=== PATIENT | male | born 1970 | race Caucasian/White ===

== ENCOUNTER 2016-05-29 12:09 | Inpatient (IN) | payer MEDICARE, MEDICAID ==
[~2016-05-29] VITALS: Ht 188 cm; Wt 183.7 kg
[~2016-05-29 12:09] MED LIST: /ACYC20CA OR; /ESCI10TA PO; /HALO5TAB OR; /QUET10TA OR; /QUET10TA PO; /QUET25TA OR; ABIL15TA OR; ABIL5TAB OR; ATEN25TA PO; ATIV0.5T OR; ATIV1TAB2 OR; BACT800T5 PO; BENZ1TA PO; BENZ1TAB OR; BENZ2TAB OR; BUSP10TA78 PO; COGE1INJ IJ; COGE1INJ OR; COGE1INJ PO; DEPA250T3 OR; DEPA500T OR; DEPAKOTE; DEPAKOTE ER PO; DOCU100C PO; FLOM5CAP PO; FLUP10TA PO; FLUP25TA PO; FLUP25VL IM; FLUP5TA PO; GEOD40CA PO; HALDOL PO; HALO10TA4 OR; HYDR25T PO; KLON0.5T PO; LEXA1TAB PO; LITH300C PO; LITH300T PO; LITH600C PO; PAXI20TA OR; QUET1TAB8 PO; QUET50TA2 PO; SERO200T PO; SERO400T PO; TRAZ100T2 PO; TRAZ50TA OR; TRIA2TA OR; WELL100T2 OR; ZYPR15TA OR; cogentin PO
[2016-05-29 12:55] LABS: MEAN CORPUSCULAR HEMOGLOBIN 29.8 pg (27.0-33.0); MEAN CORPUSCULAR HGB CONC 33.3 g/dl (32.0-36.5); MEAN CORPUSCULAR VOLUME 89.4 fl (80.0-96.0); RED CELL DISTRIBUTION WIDTH 13.5 % (11.5-14.5); WHITE BLOOD COUNT 6.1 K/mm3 (4.0-10.0)
[2016-05-29 13:06] LABS: AMPHETAMINES LEVEL URINE NEGATIVE (NEGATIVE); BENZODIAZEPINES URINE NEGATIVE (NEGATIVE); COCAINE METABOLITE URINE NEGATIVE (NEGATIVE); CONTROL LINE INT CTR LINE PRESENT; METHADONE URINE NEGATIVE (NEGATIVE); OPIATES URINE NEGATIVE (NEGATIVE); TRICYCLIC ANTIDEPRESS URINE NEGATIVE (NEGATIVE)
[2016-05-29 13:29] LABS: ALBUMIN 3.7 GM/DL (3.2-5.2); ALBUMIN/GLOBULIN RATIO 0.97 (1.00-1.93); ALKALINE PHOSPHATASE 62 U/L (45-117); ALT/SGPT 37 U/L (12-78); ANION GAP 8 MEQ/L (8-16); AST/SGOT 31 U/L (15-37); BILIRUBIN,DIRECT 0.2 MG/DL (0.0-0.2); BILIRUBIN,TOTAL 0.7 MG/DL (0.2-1.0); BLOOD UREA NITROGEN 8 MG/DL (7-18); CALCIUM LEVEL 8.8 MG/DL (8.5-10.1); CARBON DIOXIDE LEVEL 30 MEQ/L (21-32); CHLORIDE LEVEL 100 MEQ/L (98-107); CREATININE FOR GFR 1.06 MG/DL (0.70-1.30); GLOMERULAR FILTRATION RATE > 60.0 (>60); GLUCOSE, FASTING 92 MG/DL (70-105); POTASSIUM SERUM 3.6 MEQ/L (3.5-5.1); SODIUM LEVEL 138 MEQ/L (136-145); TOTAL PROTEIN 7.5 GM/DL (6.4-8.2)
[2016-05-29] MEDS ORDERED: LITH300T2 PO (14:35)
[2016-05-29] MEDS ORDERED: ATEN25TA PO (14:35)
[2016-05-29] MEDS ORDERED: INVE6TAB2 PO (14:35)
[2016-05-29] MEDS ORDERED: SERO1TAB2 PO (14:35)
[2016-05-29] MEDS ORDERED: LORazepam 1 MG TAB As Ordered ONE (14:47)
[2016-05-29 15:05] LABS: LITHIUM LEVEL 0.48 MEQ/L (0.60-1.20)
[2016-05-29] MEDS ORDERED: NICOTINE 21MG/24HR 1 EA TRANSDERMAL As Ordered ONE (15:49)
[2016-05-29 16:35] VITALS: BP 132/80
--- NOTE | 2016-05-29 16:38 | EDDOCDS ---
Nurse's Notes [facility] Name: Tristen Christian Age: 45 yrs Sex: Male : 1970 Arrival Date: 05/29/2016 Time: 12:09 Bed [facility] Private MD: Diagnosis: Major depressive disorder, single episode Presentation: 05/29 12:14 Presenting complaint: came in to [facility] [facility] with a hunting knife and ms2 threatening staff threatened to break staff's jaw----manic and sexually inappropriate--landlord states pt has been punching holes in ramirez and pt pulled sink off the wall. Mental Health Triage Level: Level 2: The patient displays active homicidal ideations. The patient was brought to the ED for evaluation because of a legal pickup order. Adult Sepsis Screening: Patient has new or worsening altered mentation (1 point). Patient's respiratory rate is less than 22. Systolic blood pressure is greater than 100. Patient has a qSOFA score of 1- Negative Sepsis Screen. Mental Health Triage Level: Level 2: The patient displays active homicidal ideations. The patient was brought to the ED for evaluation because of a legal pickup order. Suicide/Homicide risk assessment- The patient admits to and/or has been reported to be having homicidal ideations. Suicide/Homicide risk assessment- The patient reports that he/she has not been admitted to an inpatient mental health facility in the last 30 days. The patient reports that he/she does not have a recent or current history of substance abuse. The patient reports that he/she has a prior history of suicide attempt and/or organized plan. The patient reports that he/she has not experienced a significant life altering event in the last 30 days. The patient reports that he/she has adequate social support. The patient reports he/she has significant chronic medical condition(s). Status: Patient is not a agricultural service worker or dependent. Transition of care: patient was not received from another setting of care. 12:14 Acuity: RANJEET Level 3 ms2 12:14 Method Of Arrival: Police Car ms2 Triage Assessment: 12:26 General: Appears in no apparent distress. Pt Declines HIV testing. The patient is ms2 triaged at the bedside. See Assessment in Nurses Notes section of ED record. Neurological: Level of Consciousness is awake, alert, obeys commands. Respiratory: No deficits noted. Airway is patent Respiratory effort is even, unlabored, Respiratory pattern is regular, symmetrical. GI: Abdomen is obese. Derm: Skin is pink, warm & dry. Musculoskeletal: Range of motion intact in all extremities. Historical: - Allergies: states there is but not sure what-----[facility] in [place]; - Home Meds: 1. lithium carbonate 300 mg Oral cap 900 mg 2x a day (Last dose: 05/29/2016 09:00) 2. Seroquel 300 mg Oral tab nightly (Last dose: 05/28/2016 21:00) 3. Haldol 2 mg Oral tab 3 tab once daily (Last dose: 05/29/2016 09:00) 4. [facility] called in [place] ----PT HAS RECENT RX'S FOR INVEGA ER6MG DAILY [facility]. [facility]MG --ONE BID 6. LAST FILLED LITHIUM IN DECEMBER 2015 7. LAST FILLED SEROQUEL IN 2015 8. NO RECENT INFORMATION ON ANY RX FOR HALDOL - PMHx: schizoaffective d/o, bipolar type; - PSHx: unknown; - Social history: Smoking status: Chewing Tobacco No barriers to communication noted, The patient speaks fluent Georgian. - Family history: Not pertinent. - : The pt / caregiver states he / she is not on anticoagulants. Home medication list is obtained from the patient, [employer] import data. - Exposure Risk Screening:: None identified. Screenin:37 Screening information is obtained from prior medical records. Fall risk: No risks ms2 identified. Assistance ADL's: requires no assistance with activities of daily living. Abuse/DV Screen: The patient / caregiver reports he/she is: not in a situation that causes fear, pain or injury. Nutritional screening: No deficits noted. Advance Directives: Currently, there is no health care proxy. There is no active DNR order. There is no living will. There is no Power of Agency Legal Counsel. Advance directive information has not previously been placed in an [facility] medical record. Further advance directive information is declined. home support is adequate. Assessment: 12:27 General: see triage assessment. ms2 13:35 General: Appears in no apparent distress, had lunch tray and box lunch--taken well. ms2 Behavior is cooperative. Neurological: No deficits noted. Respiratory: No deficits noted. Derm: Skin is pink, warm & dry. Musculoskeletal: Range of motion intact in all extremities. 13:44 General: PFS in to see pt.. ms2 14:20 General: Appears in no apparent distress. Neurological: No deficits noted. Respiratory: ms2 Respiratory effort is even, unlabored. Derm: Skin is pink, warm & dry. 15:00 General: pt declines PO Ativan---states is not on it at home and does not want to make ms2 him too sleepy. General: dr chen aware. Neurological: Level of Consciousness is awake, alert, obeys commands. Respiratory: Respiratory effort is even, unlabored. Derm: Skin is pink, warm & dry. Musculoskeletal: No deficits noted. 15:04 Adult Sepsis Screening: The patient does not have new or worsening altered mentation. ms2 Patient's respiratory rate is less than 22. Systolic blood pressure is greater than 100. Patient has a qSOFA score of 0- Negative Sepsis Screen. General: Appears in no apparent distress, Behavior is cooperative. Neurological: Level of Consciousness is awake, alert, obeys commands. Respiratory: No deficits noted. Airway is patent Respiratory effort is even, unlabored, Respiratory pattern is regular, symmetrical. GI: Abdomen is flat, non- distended. Derm: Skin is pink, warm & dry. Musculoskeletal: Range of motion intact in all extremities. 15:54 General: Denies pt refusing nicotine patch after requesting it. Respiratory: No ms2 deficits noted. Derm: Skin is pink, warm & dry. 16:08 General: Appears in no apparent distress, on phone ---pt now wavering on going to floor ms2 ---since this time pt has been happy to be admitted and not go home and now just before having to do something -pt changing mind. Respiratory: Respiratory effort is even, unlabored, Respiratory pattern is regular, symmetrical. Derm: Skin is pink, warm & dry. Musculoskeletal: Range of motion intact in all extremities. 16:32 General: Appears in no apparent distress, Behavior is cooperative, loud voice however. ms2 Neurological: Level of Consciousness is awake, alert, obeys commands. Respiratory: Airway is patent Respiratory effort is even, unlabored, Respiratory pattern is regular, symmetrical. Derm: Skin is pink, warm & dry. Musculoskeletal: Range of motion intact in all extremities. Mental Health Eval: 15:06 Mental health consult is initiated at 14:00. 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 [facility] Behavioral Health: The patient is not an established patient of [facility] Behavioral Health. Referral Information: Evaluation referral is generated by a police agency: [employer] on issued by [facility]. The patient was referred for evaluation because Pt took knife to appt today, reportedly threatened staff. Subjective: The patients chief complaint is Pt threatened staff at [facility] today with knife, threatened to break a staff member's jaw. Pt stated he had knife because he didn't have his gun. Police called by staff. Pt making bizarre statements, says he has not eaten in 2 days because he is afraid to use the stove because the "drug dealers are coming in at night and turning on the burners." Pt is "angry at all the drug dealers.". Delusions are paranoid, persecutory, Patient's mood is anxious, elevated, irritable, Hallucinations are denied. Pt has long hx of hospitalizations, most recently at [facility] 03/19/16. Pt currently denying SI or HI, says he is "just angry with all the drug dealers." Denies he has missed any medications. Teresa reported pt has trashed his apt, torn the sink from the wall and punched holes in the wall. Mental Health history: Schizoaffective D/O. Mental Health Admissions: Most recently at [facility] 03/[address] [facility], 03/19/16 Current Outpatient Mental Health Services: Psychiatrist / Agency: Pt is seen at [facility] in [facility] . Therapist / Agency: Ruchi Martin at [facility]. Current living environment is Family / Home Support: Pt resides alone. Poor supports The patient is . Patient presents to Emergency Department with the following symptoms within the past 2 weeks: anger, delusions of persecution, Homicidal ideation toward their Threatened to kill staff with knife at [facility] today. non-compliance, poor impulse control. Substance abuse: Pt denies. Mental status exam: Patients appearance is disheveled obese, malodorous unkempt, Patient's behavior is cooperative, bizarre, Speech is pressured. Affect is labile. Mood is irritable. Hallucinations are denied. Appetite is normal. Memory is fair. Energy level is lethargic. Content of thought is Paranoid, delusional Thought process is loose. Cognitive level is oriented to person, place, time and situation Patient's insight is poor. Judgement is poor. Rapport with interviewer is guarded. Suicidal Ideation is denied. Homicidal ideation is denied. Disposition: Medically cleared for disposition by Rach Burrows MD Psychiatric Consult is performed by phone with Dr Erick Hill. [facility] Admission Criteria: The patient displays symptoms of severe psychiatric disorder resulting in disordered behavior and significant interference with his / her ability to maintain self care. Delusions. Nely. The patient requires continuous observation and/or control to protect self, others or property. The patient's care requires a multi-modal treatment plan under close supervision and coordination due to the complexity and severity of the patient's symptoms. The patient requires administration and monitoring of psychoactive medications by skilled medical providers due to the side effects of the psychoactive medications or significant dosage adjustments. Legal Status: Patient's legal status will be Emergency admission: . [place] Safe Act: [place] Safe Act is applicable to this patient. The patient poses a risk to self or other and the Nursing Property Clerk has been notified. He/She will enter the patient's data. DSM-V Differential Diagnosis: Schizoaffective Disorder (F25.0) bipolar type (F25.0). Insurance Pre-Certification: Not Required, Pt has Medicare and Medicaid. Awaiting: transfer to [facility]. Vital Signs: 12:24 BP 147 / 92; Pulse 94; Resp 20 S; Pulse Ox 93% on R/A; Height 6 ft. 2 in. (187.96 cm); ms2 Pain 0/10; 12:24 pt does not give weight ms2 ED Course: 12:10 Patient visited by Ryan Monte. mm15 12:10 Patient moved to Waiting mm15 12:12 Gustavo Moreland,DAISY is Primary Nurse. ms2 12:12 Patient moved to [facility] ms2 12:16 Rach Burrows MD is Attending Physician. sd1 12:16 Patient visited by Rach Burrows MD. sd1 12:20 Triage Initiated ms2 12:30 Pt greeted and oriented to ED. Patient advised of names of staff involved in care, pjf location of call west, wait times and NPO status. Accompanied by Law Enforcement, [facility] (9.45), Patient has correct armband on for positive identification. Placed in psych safe attire. Bed in low position. Call light in reach. Side rails up X 1. Security observing. Property removed, secured in belongings bag- Placed in locker #4. Door closed. Visitors limited. Lights dimmed. Report received from rn - psych. triage level #2, ams, cooperative \\T\\ this time. The patient / caregiver is instructed regarding the plan of care and ED course. Psych Safety Check: Location: Psych Room. 12:50 Patient visited by Bcek Crump Security Aide. pjf 13:04 Patient visited by Beck Crump Security Aide. pjf 13:17 Patient visited by Beck Crump Security Aide. pjf 13:36 The patient / caregiver is instructed regarding the plan of care and ED course. ms2 Security observing. 13:37 No IV's were initiated during this patient's visit. No procedures done that require ms2 assistance. 13:44 Patient visited by Gustavo Moreland RN. ms2 13:45 Psych Safety Check: Location: Psych Room. Visual Assessment: Cooperative. pjf 14:00 Psych Safety Check: Location: Psych Room. Visual Assessment: Cooperative. pjf 14:08 Patient visited by Beck Crump Security Aide. pjf 14:15 Psych Safety Check: Location: Psych Room. Visual Assessment: Cooperative. pjf 14:18 Erick Hill is Hospitalizing Provider. sd1 14:20 The patient / caregiver is instructed regarding the plan of care and ED course. ms2 Security observing. 14:36 Patient visited by Beck Crump Security Aide. pjf 14:38 [facility] Payment Agreement was scanned into [employer] and attached to record. jp5 15:04 Patient visited by Gustavo Moreland RN. ms2 15:05 The patient / caregiver is instructed regarding the plan of care and ED course. ms2 Security observing. 15:10 Patient visited by Gustavo Moreland RN. ms2 15:11 Patient name changed from Tristen\\S\\\\S\\Anahi\\S\\ to Tristen\\S\\ \\S\\Anahi. EDMS 15:54 Patient visited by Gustavo Moreland RN. ms2 16:08 Patient visited by Gustavo Moreland RN. ms2 16:12 Security observing. ms2 16:32 Patient visited by Gustavo Moreland RN. ms2 16:33 The patient / caregiver is instructed regarding the plan of care and ED course. ms2 Security observing. Administered Medications: 14:57 Not Given (Patient Refused): LORazepam 2 mg PO once sd1 15:54 Not Given (pt refuses once jwriter in room to givee): Nicotine Patch 21 mg/24 hr 1 ms2 applic Transdermal once Order Results: Lab Order: Acetaminophen Level; SPEC'M 05/29/16 12:09 Test: ACETAMINOPHEN LEVEL; Value: < 2.0; Range: 10.0-30.0; Abnormal: Below low normal; Units: UG/ML; Status: F Lab Order: Basic Metabolic Profile; SPEC'M 05/29/16 12:09 Test: GLUCOSE, FASTING; Value: 92; Range: 70-105; Units: MG/DL; Status: F Test: BLOOD UREA NITROGEN; Value: 8; Range: 7-18; Units: MG/DL; Status: F Test: CREATININE FOR GFR; Value: 1.06; Range: 0.70-1.30; Units: MG/DL; Status: F Test: GLOMERULAR FILTRATION RATE; Value: > 60.0; Range: >60; Status: F Test: SODIUM LEVEL; Value: 138; Range: 136-145; Units: MEQ/L; Status: F Test: POTASSIUM SERUM; Value: 3.6; Range: 3.5-5.1; Units: MEQ/L; Status: F Test: CHLORIDE LEVEL; Value: 100; Range: 98-107; Units: MEQ/L; Status: F Test: CARBON DIOXIDE LEVEL; Value: 30; Range: 21-32; Units: MEQ/L; Status: F Test: ANION GAP; Value: 8; Range: 8-16; Units: MEQ/L; Status: F Test: CALCIUM LEVEL; Value: 8.8; Range: 8.5-10.1; Units: MG/DL; Status: F Test Note: ; Units are mL/min/1.73 m2 Chronic Kidney Disease Staging per NKF: Stage I & II GFR >=60 Normal to Mildly Decreased Stage III GFR 30-59 Moderately Decreased Stage IV GFR 15-29 Severely Decreased Stage V GFR <15 Very Little GFR Left ESRD GFR <15 on [employer] Lab Order: Complete Blood Count; SPEC'M 05/29/16 12:09 Test: WHITE BLOOD COUNT; Value: 6.1; Range: 4.0-10.0; Units: K/mm3; Status: F Test: RED BLOOD COUNT; Value: 4.29; Range: 4.30-6.10; Abnormal: Below low normal; Units: M/mm3; Status: F Test: HEMOGLOBIN; Value: 12.8; Range: 14.0-18.0; Abnormal: Below low normal; Units: g/dl; Status: F Test: HEMATOCRIT; Value: 38.4; Range: 42.0-52.0; Abnormal: Below low normal; Units: %; Status: F Test: MEAN CORPUSCULAR VOLUME; Value: 89.4; Range: 80.0-96.0; Units: fl; Status: F Test: MEAN CORPUSCULAR HEMOGLOBIN; Value: 29.8; Range: 27.0-33.0; Units: pg; Status: F Test: MEAN CORPUSCULAR HGB CONC; Value: 33.3; Range: 32.0-36.5; Units: g/dl; Status: F Test: RED CELL DISTRIBUTION WIDTH; Value: 13.5; Range: 11.5-14.5; Units: %; Status: F Test: PLATELET COUNT, AUTOMATED; Value: 210; Range: 150-450; Units: k/mm3; Status: F Lab Order: Drug Eval Toxicology ED Only; SPEC'M 05/29/16 12:09 Test: AMPHETAMINES LEVEL URINE; Value: NEGATIVE; Range: NEGATIVE; Status: F Test: BARBITURATES URINE; Value: NEGATIVE; Range: NEGATIVE; Status: F Test: BENZODIAZEPINES URINE; Value: NEGATIVE; Range: NEGATIVE; Status: F Test: CANNABINOIDS URINE; Value: NEGATIVE; Range: NEGATIVE; Status: F Test: COCAINE METABOLITE URINE; Value: NEGATIVE; Range: NEGATIVE; Status: F Test: METHADONE URINE; Value: NEGATIVE; Range: NEGATIVE; Status: F Test: OPIATES URINE; Value: NEGATIVE; Range: NEGATIVE; Status: F Test: TRICYCLIC ANTIDEPRESS URINE; Value: NEGATIVE; Range: NEGATIVE; Status: F Test Note: ; ALL PRESUMPTIVE POSITIVE FINDINGS ARE UNCONFIRMED NORMAL VALUES THRESHOLD IN NG/ML AMPHETAMINES 1000 METHAMPHETAMINES 1000 BARBITURATES 300 BENZODIAZEPINES 300 CANNABINOIDS (THC) 50 COCAINE METABOLITE 300 METHADONE 300 OPIATES 300 PHENCYCLIDINE 25 TRICYCLIC ANTIDEPRESSANTS 1000 RESULTS ARE FOR MEDICAL PURPOSES ONLY. ALL URINE SPECIMENS WILL BE SAVED FOR 3 DAYS. IF CONFIRMATION OF A PRESUMPTIVE POSTIVE SCREEN RESULT IS DESIRED, CALL CHEMISTRY ([phone]) AND REQUEST URINE TO BE SENT TO REFERENCE LAB. FOR A LIST OF CLOSELY RELATED COMPOUNDS PLEASE CALL THE LAB. Lab Order: Ethyl Alcohol (ethanol); SPEC'M 05/29/16 12:09 Test: ETHYL ALCOHOL (ETHANOL); Value: < 0.003; Range: 0.000-0.010; Units: %; Status: F Lab Order: Liver Profile; SPEC'M 05/29/16 12:09 Test: AST/SGOT; Value: 31; Range: 15-37; Units: U/L; Status: F Test: ALT/SGPT; Value: 37; Range: 12-78; Units: U/L; Status: F Test: ALKALINE PHOSPHATASE; Value: 62; Range: 45-117; Units: U/L; Status: F Test: BILIRUBIN,TOTAL; Value: 0.7; Range: 0.2-1.0; Units: MG/DL; Status: F Test: BILIRUBIN,DIRECT; Value: 0.2; Range: 0.0-0.2; Units: MG/DL; Status: F Test: TOTAL PROTEIN; Value: 7.5; Range: 6.4-8.2; Units: GM/DL; Status: F Test: ALBUMIN; Value: 3.7; Range: 3.2-5.2; Units: GM/DL; Status: F Test: ALBUMIN/GLOBULIN RATIO; Value: 0.97; Range: 1.00-1.93; Abnormal: Below low normal; Status: F Lab Order: Salicylate Level; SPEC'M 05/29/16 12:09 Test: SALICYLATE LEVEL; Value: < 1.7; Range: 5.0-30.0; Abnormal: Below low normal; Units: MG/DL; Status: F Lab Order: Thyroid Stimulating Hormone; SPEC'M 05/29/16 12:09 Test: THYROID STIMULATING HORMONE; Value: 1.400; Range: 0.358-3.740; Units: uIU/ML; Status: F Lab Order: LITHIUM LEVEL; SPEC'M 05/29/16 12:09 Test: LITHIUM LEVEL; Value: 0.48; Range: 0.60-1.20; Abnormal: Below low normal; Units: MEQ/L; Status: F Outcome: 14:18 Decision to Hospitalize by Provider. sd1 16:33 Discharge Assessment: patient administered narcotics - no. The following High Risk ms2 Discharge criteria are identified: None. Admitted to Psych accompanied by tech, via wheelchair, with chart, Other 2 security accompanying pt. Condition: stable. No special radiology studies were completed. 16:37 Patient left the ED. ms2 Signatures: Dispatcher [employer] EDMS Rach Burrows MD MD sd1 Gustavo Moreland RN RN ms2 Marisabel Ferrara, PSA PSA Beck Ayala, Security Aide Ryan Gilbert mm15 Han Shukla jp5 Corrections: (The following items were deleted from the chart) 15:10 15:06 Discharge Assessment: patient administered narcotics - no ms2 ms2 15:10 15:06 The following High Risk Discharge criteria are identified: None. Admitted to ms2 Psych accompanied by tech, via wheelchair, with chart, ms2 15: 15:06 Condition: stable ms2 ms2 15:10 15:06 No special radiology studies were completed ms2 ms2 15:10 15:09 Patient left the ED. ms2 ms2 15:11 15:05 BP 133 / 71; Pulse 77bpm; Resp 20bpm; Spontaneous; Pulse Ox 98% RA; Temp 96.4F ms2 Oral; Pain 0/10; ms2 15:27 15:06 Subjective: The patients chief complaint is Pt threatened MH staff at [facility] today with knife, threatened to break a staff member's jaw. Pt stated he had knife because he didn't have his gun. Police called by staff. Pt making bizarre statements, says he has not eaten in 2 days because he is afraid to use the stove because the "drug dealers are coming in at night and turning on the burners." Pt is "angry at all the drug dealers.". Delusions are paranoid, persecutory, Patient's mood is anxious, elevated, irritable, Hallucinations are denied. Pt has long hx of hospitalizations, most recently at [facility] 03/19/16. Pt currently denying SI or HI, says he is "just angry with all the drug dealers." Denies he has missed any medications ca MTDD
--- NOTE | 2016-05-29 16:38 | EDDOCDS ---
Physician Documentation [facility] Name: Tristen Christian Age: 45 yrs Sex: Male : 1970 Arrival Date: 05/29/2016 Time: 12:09 Bed [facility] Private MD: Disposition: 05/29/16 14:18 Hospitalization ordered by Erick Hill for Inpatient Admission. Preliminary diagnosis is Major depressive disorder, single episode. - Bed requested for Admit. - Status is Inpatient Admission. ms2 - Condition is Stable. - Problem is an ongoing problem. - Symptoms are unchanged. Historical: - Allergies: states there is but not sure what-----[facility] in [place]; - Home Meds: 1. lithium carbonate 300 mg Oral cap 900 mg 2x a day (Last dose: 05/29/2016 09:00) 2. Seroquel 300 mg Oral tab nightly (Last dose: 05/28/2016 21:00) 3. Haldol 2 mg Oral tab 3 tab once daily (Last dose: 05/29/2016 09:00) [facility]. [facility] [place] ----PT HAS RECENT RX'S FOR INVEGA ER6MG DAILY 5. PER [facility] ---ATENOLOL 25MG --ONE BID 6. LAST FILLED LITHIUM IN DECEMBER 2015 7. LAST FILLED SEROQUEL IN 2015 8. NO RECENT INFORMATION ON ANY RX FOR HALDOL - PMHx: schizoaffective d/o, bipolar type; - PSHx: unknown; - Social history: Smoking status: Chewing Tobacco No barriers to communication noted, The patient speaks fluent Persian. - Family history: Not pertinent. - : The pt / caregiver states he / she is not on anticoagulants. Home medication list is obtained from the patient, [employer] import data. - Exposure Risk Screening:: None identified. Vital Signs: 05/29 12:24 BP 147 / 92; Pulse 94; Resp 20 S; Pulse Ox 93% on R/A; Height 6 ft. 2 in. (187.96 cm); ms2 Pain 0/10; 12:24 pt does not give weight ms2 MDM: 12:14 REGULAR DIET PLASTIC ANDERSON+DIET ordered. EDMS 12:17 Consult PFS/PSA/Script Reader ordered. sd1 12:17 Consult PFS/PSA/Script Reader: Patient's case requires discussion with on-call sd1 Psychiatrist ordered. 12:17 PSA/PFS to call Nursing Retort Engineer, to [place] if patient sd1 involuntarily admitted or transferred for SI or HI ordered. 12:17 Confirm accurate psychiatric medication list and times of last dosage ordered. sd1 12:17 Detain Pt Until Medically/PFS Cleared ordered. sd1 12:18 Acetaminophen Level Ordered. EDMS 12:18 Basic Metabolic Profile Ordered. EDMS 12:18 Complete Blood Count Ordered. EDMS 12:18 Drug Eval Toxicology ED Only Ordered. EDMS 12:18 Ethyl Alcohol (ethanol) Ordered. EDMS 12:18 Liver Profile Ordered. EDMS 12:18 Salicylate Level Ordered. EDMS 12:18 Thyroid Stimulating Hormone Ordered. EDMS 13:52 Consult PFS/PSA/Script Reader complete. ca 13:52 Acetaminophen Level Reviewed. sd1 13:52 Complete Blood Count Reviewed. sd1 13:52 Liver Profile Reviewed. sd1 13:52 Salicylate Level Reviewed. sd1 13:52 Basic Metabolic Profile Reviewed. sd1 13:52 Drug Eval Toxicology ED Only Reviewed. sd1 13:52 Ethyl Alcohol (ethanol) Reviewed. sd1 13:52 Thyroid Stimulating Hormone Reviewed. sd1 13:52 Consult PFS/PSA/Script Reader: Patient's case requires discussion with on-call ca Psychiatrist complete. 14:11 LORazepam 2 mg PO once ordered. sd1 14:14 PSA/PFS to call Nursing Retort Engineer, to [place] if patient ca involuntarily admitted or transferred for SI or HI complete. 14:38 [facility] Payment Agreement was scanned into [employer] and attached to record. jp5 14:38 Financial registration complete. jp5 14:41 LITHIUM LEVEL Ordered. EDMS 15:02 Admit to [facility]: ordered. EDMS 15:15 REGULAR DIET ordered. EDMS 15:35 Nicotine Patch 21 mg/24 hr 1 applic Transdermal once ordered. sd1 Administered Medications: 14:57 Not Given (Patient Refused): LORazepam 2 mg PO once sd1 15:54 Not Given (pt refuses once jwriter in room to givee): Nicotine Patch 21 mg/24 hr 1 ms2 applic Transdermal once Signatures: Dispatcher [employer] EDMS Rach Burrows MD MD sd1 Gustavo Moreland RN RN ms2 Marisabel Ferrara, PSA PSA Han Alcaraz jp5 The chart was reviewed and I authenticate all verbal orders and agree with the evaluation and treatment provided.Corrections: (The following items were deleted from the chart) 14:41 14:35 LITHIUM LEVEL+LAB ordered. EDMS EDMS Attachments: 14:38 [facility] Payment Agreement jp5 MTDD
[2016-05-29] MEDS ORDERED: MOM 30ML SUSPENSION UDC PO PRN (19:15)
[2016-05-29] MEDS ORDERED: ACETAMINOPHEN TAB 650MG DOSE (2X325MG) PO PRN (19:15)
[2016-05-29] MEDS ORDERED: traZODone 50 MG TAB PO PRN (19:15)
[2016-05-29] MEDS ORDERED: OLANZapine ORAL DISINTEGRATING TAB 5MG PO PRN (19:15)
[2016-05-29] MEDS ORDERED: MAALOX 30 ML SUSP *UDC PO PRN (19:15)
[2016-05-29] MEDS: QUEtiapine FUMARATE 50 MG TAB PO SCH (20:55)
[2016-05-29] MEDS: NICOTINE 21MG/24HR 1 EA TRANSDERMAL TD SCH (20:56)
[2016-05-29] MEDS: LITHIUM CARBONATE 300 MG CAP PO SCH (20:56)
[2016-05-29] MEDS ORDERED: PALIPERIDONE 3 MG ER TAB (INVEGA) PO ONE (21:00)
[2016-05-30 06:35] VITALS: BP 149/81
[2016-05-30] MEDS: NICOTINE 21MG/24HR 1 EA TRANSDERMAL TD SCH (08:18)
[2016-05-30] MEDS: ATENOLOL 25 MG TAB PO SCH (08:18)
[2016-05-30] MEDS: LITHIUM CARBONATE 300 MG CAP PO SCH ×2 (08:18→20:30)
[2016-05-30] MEDS ORDERED: PALIPERIDONE 3 MG ER TAB (INVEGA) PO ONE (09:00)
--- NOTE | 2016-05-30 11:58 | HPEPDOC ---
Medical History and Physical Date of Admission May 29, 2016 at 16:35 History and Physical PCP: Dr Mojica ATTENDING: Dr. Gwyn Valencia HPI: 45yoF admitted to [facility] for Schizoaffective Disorder, being medically examined today. No acute medical complaints today. Denies any fevers, chills, weakness, fatigue, WELLER, CP, SOB, cough, palpitations, abdominal pain, N/V/D or changes in bowel or bladder habits. PMHx: Hypertension BPH Bipolar disorder Schizoaffective disorder Depression History of bladder tumor status post resection 04/02- Dr Goyal History of substance use PSHX: Bladder tumor resection SOCHX: Resides in: [facility] Marital Status: Kids: None Employment: Unemployed Tobacco use: One can of chewing tobacco per day ETOH: One to 2 times per month up to 6 drinks Illicit Drugs: History of marijuana use, none recently IV Drug Use: Denies Tattoos done unprofessionally: Denies FAMHX: Mother: Alive, well Father: , 68 [place] Siblings: Alive, well Unexpected deaths due to medical reasons: None. ROS: As noted in HPI, otherwise 11pt ROS of systems reviewed and unremarkable PE: GEN: 45yoM, appears stated age. Well-nourished, well developed. No acute distress. Alert and oriented x 3. Pleasant, interactive. HEENT: Normocephalic, atraumatic. Pupils are equal, round, and reactive to light. Extraocular movements are intact. No nystagmus appreciated. Sclera are nonicteric. Conjunctiva without injection. Nose midline. Nasal turbinates without bogginess. EACs both patent BL. TMs both visualized and salazar with good cone of light, no bulging or erythema. No facial asymmetry. Moist mucous membranes. Dentition fair. Pharynx pink and moist, no cobblestoning. Neck supple , trachea midline. No lymphadenopathy or thyromegaly appreciated. CHEST: Regular rate and rhythm, +S1, +S2 LUNGS: Clear to auscultation bilaterally. No wheezes, rales, or rhonchi. Breathing appears symmetric and easy. Patient is speaking in full sentences. No accessory muscle use. ABD: Round, soft, non-tender, non-distended. +Bowel sounds throughout. No rebound or guarding. No costovertebral angle tenderness. EXT: Pulses 2+ bilaterally dorsalis pedis and radial. No lower extremity edema appreciated. SKIN: [place], dry, warm. Capillary refill <2sec. No rashes. NEURO: Alert and oriented x 3. Cranial nerves III-XII are intact. No focal deficits appreciated. EKG: Pending. A&P: 45yoF admitted to [facility] for Schizoaffective Disorder 1. Psych. Plan per Psychiatry. Obtain baseline EKG to assure the safety of psychiatric medications as they can prolong the QT interval. 2. Nicotine dependence. Patch available. 3. HTN. Continue Atenolol 25 mg daily and monitor BP. Pt had apparently not been taking Atenolol prior to admission. 4. Follow up with PCP on discharge. Dr Mojica. 5. Obesity. BMI is noted to be 50.4. Complicates care. 6. Staff member present throughout exam, Frank bar. Vital Signs Vital Signs Label Value Date Time Patient Temperature 98.6 degrees F 05/30/16 0635 Temperature Source Tympanic 05/30/16 0635 Pulse 80 05/30/16 0635 Respiratory Rate 20 bpm 05/30/16 0635 Blood Pressure Assessment 149/81 (103) 05/30/16 0635 Laboratory Data Labs 24H Laboratory Tests 2 05/29/16 12:09: Acetaminophen Level < 2.0L, Aspartate Amino Transf (AST/SGOT) 31, Alanine Aminotransferase (ALT/SGPT) 37, Alkaline Phosphatase 62, Total Bilirubin 0.7, Direct Bilirubin 0.2, Albumin 3.7, Albumin/Globulin Ratio 0.97L, Anion Gap 8, Calcium Level 8.8, Ethyl Alcohol Level < 0.003, Glomerular Filtration Rate > 60.0, [place] Level 0.48L, Salicylates Level < 1.7L, Thyroid Stimulating Hormone (TSH) 1.400, Total Protein 7.5, Urine Amphetamine Level NEGATIVE, Urine Benzodiazepines Screen NEGATIVE, Urine Cannabinoids NEGATIVE, Urine Cocaine Metabolite NEGATIVE, Urine Opiates Screen NEGATIVE, Urine Barbiturates, Qualitative NEGATIVE, Urine Methadone Screen NEGATIVE, Urine Tricyclic Antidepressants NEGATIVE CBC/BMP Laboratory Tests 05/29/16 12:09 Red Blood Count 4.29 L, Mean Corpuscular Volume 89.4, Mean Corpuscular Hemoglobin 29.8, Mean Corpuscular Hemoglobin Concent 33.3, Red Cell Distribution Width 13.5 Home Medications Scheduled Atenolol (Atenolol) 25 Mg Tab 25 MG PO BID [place] Carbonate ([place] Carbonate) 300 Mg Tab 900 MG PO BID Paliperidone (Invega) 6 Mg Tab 6 MG PO DAILY Quetiapine Fumarate (Seroquel) 300 Mg Tab 300 MG PO QHS Allergies Coded Allergies: Bupropion (Verified Adverse Reaction, Intermediate, SEIZURES, 03/31/14) Deidra Myers May 30, 2016 11:58
--- NOTE | 2016-05-30 17:33 | ECGEPIP ---
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
[2016-05-30 18:00] VITALS: BP 118/60
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
[2016-05-30] MEDS: QUEtiapine FUMARATE 50 MG TAB PO SCH (22:36)
[2016-05-31 06:08] VITALS: BP 114/61
[2016-05-31] MEDS: LITHIUM CARBONATE 300 MG CAP PO SCH ×2 (09:04→21:06)
[2016-05-31] MEDS: ATENOLOL 25 MG TAB PO SCH (09:05)
[2016-05-31] MEDS: PALIPERIDONE 6 MG ER TAB (INVEGA) PO SCH (09:05)
[2016-05-31] MEDS: NICOTINE 21MG/24HR 1 EA TRANSDERMAL TD SCH (09:05)
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
--- NOTE | 2016-05-31 17:38 | EDDOCDS ---
Physician Documentation [facility] Name: Tristen Christian Age: 45 yrs Sex: Male : 1970 Arrival Date: 05/29/2016 Time: 12:09 Bed [facility] Private MD: Disposition: 05/29/16 14:18 Hospitalization ordered by Erick Hill for Inpatient Admission. Preliminary diagnosis is Major depressive disorder, single episode. - Bed requested for Admit. - Status is Inpatient Admission. ms2 - Condition is Stable. - Problem is an ongoing problem. - Symptoms are unchanged. Historical: - Allergies: states there is but not sure what-----[facility] in [place]; - Home Meds: 1. lithium carbonate 300 mg Oral cap 900 mg 2x a day (Last dose: 05/29/2016 09:00) 2. Seroquel 300 mg Oral tab nightly (Last dose: 05/28/2016 21:00) 3. Haldol 2 mg Oral tab 3 tab once daily (Last dose: 05/29/2016 09:00) [facility]. [facility] [place] ----PT HAS RECENT RX'S FOR INVEGA ER6MG DAILY 5. PER [facility] ---ATENOLOL 25MG --ONE BID 6. LAST FILLED LITHIUM IN DECEMBER 2015 7. LAST FILLED SEROQUEL IN 2015 8. NO RECENT INFORMATION ON ANY RX FOR HALDOL - PMHx: schizoaffective d/o, bipolar type; - PSHx: unknown; - Social history: Smoking status: Chewing Tobacco No barriers to communication noted, The patient speaks fluent Georgian. - Family history: Not pertinent. - : The pt / caregiver states he / she is not on anticoagulants. Home medication list is obtained from the patient, [employer] import data. - Exposure Risk Screening:: None identified. Vital Signs: 05/29 12:24 BP 147 / 92; Pulse 94; Resp 20 S; Pulse Ox 93% on R/A; Height 6 ft. 2 in. (187.96 cm); ms2 Pain 0/10; 12:24 pt does not give weight ms2 MDM: 12:14 REGULAR DIET PLASTIC ANDERSON+DIET ordered. EDMS 12:17 Consult PFS/PSA/Brazing Machine Setter ordered. sd1 12:17 Consult PFS/PSA/Brazing Machine Setter: Patient's case requires discussion with on-call sd1 Psychiatrist ordered. 12:17 PSA/PFS to call Nursing Machine Shop Inspector, to enter [place] data [place] if patient sd1 involuntarily admitted or transferred for SI or HI ordered. 12:17 Confirm accurate psychiatric medication list and times of last dosage ordered. sd1 12:17 Detain Pt Until Medically/PFS Cleared ordered. sd1 12:18 Acetaminophen Level Ordered. EDMS 12:18 Basic Metabolic Profile Ordered. EDMS 12:18 Complete Blood Count Ordered. EDMS 12:18 Drug Eval Toxicology ED Only Ordered. EDMS 12:18 Ethyl Alcohol (ethanol) Ordered. EDMS 12:18 Liver Profile Ordered. EDMS 12:18 Salicylate Level Ordered. EDMS 12:18 Thyroid Stimulating Hormone Ordered. EDMS 13:52 Consult PFS/PSA/Brazing Machine Setter complete. ca 13:52 Acetaminophen Level Reviewed. sd1 13:52 Complete Blood Count Reviewed. sd1 13:52 Liver Profile Reviewed. sd1 13:52 Salicylate Level Reviewed. sd1 13:52 Basic Metabolic Profile Reviewed. sd1 13:52 Drug Eval Toxicology ED Only Reviewed. sd1 13:52 Ethyl Alcohol (ethanol) Reviewed. sd1 13:52 Thyroid Stimulating Hormone Reviewed. sd1 13:52 Consult PFS/PSA/Brazing Machine Setter: Patient's case requires discussion with on-call ca Psychiatrist complete. 14:11 LORazepam 2 mg PO once ordered. sd1 14:14 PSA/PFS to call Nursing Machine Shop Inspector, to enter [place] if patient ca involuntarily admitted or transferred for SI or HI complete. 14:38 [facility] Payment Agreement was scanned into [email or web address] and attached to record. jp5 14:38 Financial registration complete. jp5 14:41 LITHIUM LEVEL Ordered. EDMS 15:02 Admit to [facility]: ordered. EDMS 15:15 REGULAR DIET ordered. EDMS 15:35 Nicotine Patch 21 mg/24 hr 1 applic Transdermal once ordered. sd1 05/30 11:56 T-Sheet-- Draft Copy was scanned into [email or web address] and attached to record. gb Administered Medications: 05/29 14:57 Not Given (Patient Refused): LORazepam 2 mg PO once sd1 15:54 Not Given (pt refuses once jwriter in room to givee): Nicotine Patch 21 mg/24 hr 1 ms2 applic Transdermal once Signatures: Dispatcher [employer] EDMS Rach Burrows MD MD sd1 Gustavo Moreland,DAISY RN ms2 Marisabel Ferrara, PSA PSA ca [place], Reg Reg Han Espinosa jp5 The chart was reviewed and I authenticate all verbal orders and agree with the evaluation and treatment provided.Corrections: (The following items were deleted from the chart) 14:41 14:35 LITHIUM LEVEL+LAB ordered. EDMS EDMS Attachments: 14:38 [facility] Payment Agreement jp5 05/30 11:56 T-Sheet-- Draft Copy gb Chart Complete MTDD
--- NOTE | 2016-05-31 17:38 | EDDOCDS ---
Nurse's Notes [facility] Name: Tristen Christian Age: 45 yrs Sex: Male : 1970 Arrival Date: 05/29/2016 Time: 12:09 Bed [facility] Private MD: Diagnosis: Major depressive disorder, single episode Presentation: 05/29 12:14 Presenting complaint: [facility] with a hunting knife and ms2 threatening staff threatened to break staff's jaw----manic and sexually inappropriate--landlord states pt has been punching holes in ramirez and pt pulled sink off the wall. Mental Health Triage Level: Level 2: The patient displays active homicidal ideations. The patient was brought to the ED for evaluation because of a legal pickup order. Adult Sepsis Screening: Patient has new or worsening altered mentation (1 point). Patient's respiratory rate is less than 22. Systolic blood pressure is greater than 100. Patient has a qSOFA score of 1- Negative Sepsis Screen. Mental Health Triage Level: Level 2: The patient displays active homicidal ideations. The patient was brought to the ED for evaluation because of a legal pickup order. Suicide/Homicide risk assessment- The patient admits to and/or has been reported to be having homicidal ideations. Suicide/Homicide risk assessment- The patient reports that he/she has not been admitted to an inpatient mental health facility in the last 30 days. The patient reports that he/she does not have a recent or current history of substance abuse. The patient reports that he/she has a prior history of suicide attempt and/or organized plan. The patient reports that he/she has not experienced a significant life altering event in the last 30 days. The patient reports that he/she has adequate social support. The patient reports he/she has significant chronic medical condition(s). Status: Patient is not a family services manager or dependent. Transition of care: patient was not received from another setting of care. 12:14 Acuity: RANJEET Level 3 ms2 12:14 Method Of Arrival: Police Car ms2 Triage Assessment: 12:26 General: Appears in no apparent distress. Pt Declines HIV testing. The patient is ms2 triaged at the bedside. See Assessment in Nurses Notes section of ED record. Neurological: Level of Consciousness is awake, alert, obeys commands. Respiratory: No deficits noted. Airway is patent Respiratory effort is even, unlabored, Respiratory pattern is regular, symmetrical. GI: Abdomen is obese. Derm: Skin is pink, warm & dry. Musculoskeletal: Range of motion intact in all extremities. Historical: - Allergies: states there is but not sure what-----[facility] in [place]; - Home Meds: 1. lithium carbonate 300 mg Oral cap 900 mg 2x a day (Last dose: 05/29/2016 09:00) 2. Seroquel 300 mg Oral tab nightly (Last dose: 05/28/2016 21:00) 3. Haldol 2 mg Oral tab 3 tab once daily (Last dose: 05/29/2016 09:00) 4. [facility] [place] ----PT HAS RECENT RX'S FOR INVEGA ER6MG DAILY 5. [facility]AT[facility] 25MG --ONE BID 6. LAST FILLED LITHIUM IN DECEMBER 2015 7. LAST FILLED SEROQUEL IN 2015 8. NO RECENT INFORMATION ON ANY RX FOR HALDOL - PMHx: schizoaffective d/o, bipolar type; - PSHx: unknown; - Social history: Smoking status: Chewing Tobacco No barriers to communication noted, The patient speaks fluent Irish. - Family history: Not pertinent. - : The pt / caregiver states he / she is not on anticoagulants. Home medication list is obtained from the patient, [email or web address] import data. - Exposure Risk Screening:: None identified. Screenin:37 Screening information is obtained from prior medical records. Fall risk: No risks ms2 identified. Assistance ADL's: requires no assistance with activities of daily living. Abuse/DV Screen: The patient / caregiver reports he/she is: not in a situation that causes fear, pain or injury. Nutritional screening: No deficits noted. Advance Directives: Currently, there is no health care proxy. There is no active DNR order. There is no living will. There is no Power of Robot Programmer. Advance directive information has not previously been placed in an [facility] medical record. Further advance directive information is declined. home support is adequate. Assessment: 12:27 General: see triage assessment. ms2 13:35 General: Appears in no apparent distress, had lunch tray and box lunch--taken well. ms2 Behavior is cooperative. Neurological: No deficits noted. Respiratory: No deficits noted. Derm: Skin is pink, warm & dry. Musculoskeletal: Range of motion intact in all extremities. 13:44 General: PFS in to see pt.. ms2 14:20 General: Appears in no apparent distress. Neurological: No deficits noted. Respiratory: ms2 Respiratory effort is even, unlabored. Derm: Skin is pink, warm & dry. 15:00 General: pt declines PO Ativan---states is not on it at home and does not want to make ms2 him too sleepy. General: dr chen aware. Neurological: Level of Consciousness is awake, alert, obeys commands. Respiratory: Respiratory effort is even, unlabored. Derm: Skin is pink, warm & dry. Musculoskeletal: No deficits noted. 15:04 Adult Sepsis Screening: The patient does not have new or worsening altered mentation. ms2 Patient's respiratory rate is less than 22. Systolic blood pressure is greater than 100. Patient has a qSOFA score of 0- Negative Sepsis Screen. General: Appears in no apparent distress, Behavior is cooperative. Neurological: Level of Consciousness is awake, alert, obeys commands. Respiratory: No deficits noted. Airway is patent Respiratory effort is even, unlabored, Respiratory pattern is regular, symmetrical. GI: Abdomen is flat, non- distended. Derm: Skin is pink, warm & dry. Musculoskeletal: Range of motion intact in all extremities. 15:54 General: Denies pt refusing nicotine patch after requesting it. Respiratory: No ms2 deficits noted. Derm: Skin is pink, warm & dry. 16:08 General: Appears in no apparent distress, on phone ---pt now wavering on going to floor ms2 ---since this time pt has been happy to be admitted and not go home and now just before having to do something -pt changing mind. Respiratory: Respiratory effort is even, unlabored, Respiratory pattern is regular, symmetrical. Derm: Skin is pink, warm & dry. Musculoskeletal: Range of motion intact in all extremities. 16:32 General: Appears in no apparent distress, Behavior is cooperative, loud voice however. ms2 Neurological: Level of Consciousness is awake, alert, obeys commands. Respiratory: Airway is patent Respiratory effort is even, unlabored, Respiratory pattern is regular, symmetrical. Derm: Skin is pink, warm & dry. Musculoskeletal: Range of motion intact in all extremities. Mental Health Eval: 15:06 Mental health consult is initiated at 14:00. Status: The patient is not a ca family services manager or dependent. [facility] Behavioral Health: The patient is not an established patient of [facility] Behavioral Health. Referral Information: Evaluation referral is generated by a police agency: [employer] on issued by [facility]. The patient was referred for evaluation because Pt took knife to appt today, reportedly threatened staff. Subjective: The patients chief complaint is Pt threatened staff at [facility] today with knife, threatened to break a staff member's jaw. Pt stated he had knife because he didn't have his gun. Police called by staff. Pt making bizarre statements, says he has not eaten in 2 days because he is afraid to use the stove because the "drug dealers are coming in at night and turning on the burners." Pt is "angry at all the drug dealers.". Delusions are paranoid, persecutory, Patient's mood is anxious, elevated, irritable, Hallucinations are denied. Pt has long hx of hospitalizations, most recently at [facility] 03/19/16. Pt currently denying SI or HI, says he is "just angry with all the drug dealers." Denies he has missed any medications. Teresa reported pt has trashed his apt, torn the sink from the wall and punched holes in the wall. Mental Health history: Schizoaffective D/O. Mental Health Admissions: Most recently at [facility] 03/[address] [facility], 03/19/16 Current Outpatient Mental Health Services: Psychiatrist / Agency: Pt is seen at [facility] in [facility] . Therapist / Agency: Ruchi Martin at [facility]. Current living environment is Family / Home Support: Pt resides alone. Poor supports The patient is . Patient presents to Emergency Department with the following symptoms within the past 2 weeks: anger, delusions of persecution, Homicidal ideation toward their Threatened to kill staff with knife at [facility] today. non-compliance, poor impulse control. Substance abuse: Pt denies. Mental status exam: Patients appearance is disheveled obese, malodorous unkempt, Patient's behavior is cooperative, bizarre, Speech is pressured. Affect is labile. Mood is irritable. Hallucinations are denied. Appetite is normal. Memory is fair. Energy level is lethargic. Content of thought is Paranoid, delusional Thought process is loose. Cognitive level is oriented to person, place, time and situation Patient's insight is poor. Judgement is poor. Rapport with interviewer is guarded. Suicidal Ideation is denied. Homicidal ideation is denied. Disposition: Medically cleared for disposition by Rach Burrows MD Psychiatric Consult is performed by phone with Dr Erick Hill. [facility] Admission Criteria: The patient displays symptoms of severe psychiatric disorder resulting in disordered behavior and significant interference with his / her ability to maintain self care. Delusions. Nely. The patient requires continuous observation and/or control to protect self, others or property. The patient's care requires a multi-modal treatment plan under close supervision and coordination due to the complexity and severity of the patient's symptoms. The patient requires administration and monitoring of psychoactive medications by skilled medical providers due to the side effects of the psychoactive medications or significant dosage adjustments. Legal Status: Patient's legal status will be Emergency admission: . [place] Safe [place]: [place] Safe Act is applicable to this patient. The patient poses a risk to self or other and the Nursing Keypunch Operator has been notified. He/She will enter the patient's data. DSM-V Differential Diagnosis: Schizoaffective Disorder (F25.0) bipolar type (F25.0). Insurance Pre-Certification: Not Required, Pt has Medicare and Medicaid. Awaiting: transfer to [facility]. Vital Signs: 12:24 BP 147 / 92; Pulse 94; Resp 20 S; Pulse Ox 93% on R/A; Height 6 ft. 2 in. (187.96 cm); ms2 Pain 0/10; 12:24 pt does not give weight ms2 ED Course: 12:10 Patient visited by Ryan Monte. mm15 12:10 Patient moved to Waiting mm15 12:12 Gustavo Moreland,DAISY is Primary Nurse. ms2 12:12 Patient moved to [facility] ms2 12:16 Rach Burrows MD is Attending Physician. sd1 12:16 Patient visited by Rach Burrows MD. sd1 12:20 Triage Initiated ms2 12:30 Pt greeted and oriented to ED. Patient advised of names of staff involved in care, pjf location of call west, wait times and NPO status. Accompanied by Law Enforcement, [facility] (9.45), Patient has correct armband on for positive identification. Placed in psych safe attire. Bed in low position. Call light in reach. Side rails up X 1. Security observing. Property removed, secured in belongings bag- Placed in locker #4. Door closed. Visitors limited. Lights dimmed. Report received from rn - psych. triage level #2, ams, cooperative \\T\\ this time. The patient / caregiver is instructed regarding the plan of care and ED course. Psych Safety Check: Location: Psych Room. 12:50 Patient visited by Beck Crump Security Aide. pjf 13:04 Patient visited by Beck Crump Security Aide. pjf 13:17 Patient visited by Beck Crump Security Aide. pjf 13:36 The patient / caregiver is instructed regarding the plan of care and ED course. ms2 Security observing. 13:37 No IV's were initiated during this patient's visit. No procedures done that require ms2 assistance. 13:44 Patient visited by Gustavo Moreland RN. ms2 13:45 Psych Safety Check: Location: Psych Room. Visual Assessment: Cooperative. pjf 14:00 Psych Safety Check: Location: Psych Room. Visual Assessment: Cooperative. pjf 14:08 Patient visited by Beck Crump Security Aide. pjf 14:15 Psych Safety Check: Location: Psych Room. Visual Assessment: Cooperative. pjf 14:18 Erick Hill is Hospitalizing Provider. sd1 14:20 The patient / caregiver is instructed regarding the plan of care and ED course. ms2 Security observing. 14:36 Patient visited by Beck Crump Security Aide. pjf 14:38 [facility] Payment Agreement was scanned into [employer] and attached to record. jp5 15:04 Patient visited by Gustavo Moreland RN. ms2 15:05 The patient / caregiver is instructed regarding the plan of care and ED course. ms2 Security observing. 15:10 Patient visited by Gustavo Moreland RN. ms2 15:11 Patient name changed from Tristen\\S\\\\S\\Anahi\\S\\ to Tristen\\S\\ \\S\\Anahi. EDMS 15:54 Patient visited by Gustavo Moreland RN. ms2 16:08 Patient visited by Gustavo Moreland RN. ms2 16:12 Security observing. ms2 16:32 Patient visited by Gustavo Moreland RN. ms2 16:33 The patient / caregiver is instructed regarding the plan of care and ED course. ms2 Security observing. 05/30 11:56 T-Sheet-- Draft Copy was scanned into [employer] and attached to record. gb Administered Medications: 05/29 14:57 Not Given (Patient Refused): LORazepam 2 mg PO once sd1 15:54 Not Given (pt refuses once jwriter in room to givee): Nicotine Patch 21 mg/24 hr 1 ms2 applic Transdermal once Order Results: Lab Order: Acetaminophen Level; SPEC'M 05/29/16 12:09 Test: ACETAMINOPHEN LEVEL; Value: < 2.0; Range: 10.0-30.0; Abnormal: Below low normal; Units: UG/ML; Status: F Lab Order: Basic Metabolic Profile; SPEC'M 05/29/16 12:09 Test: GLUCOSE, FASTING; Value: 92; Range: 70-105; Units: MG/DL; Status: F Test: BLOOD UREA NITROGEN; Value: 8; Range: 7-18; Units: MG/DL; Status: F Test: CREATININE FOR GFR; Value: 1.06; Range: 0.70-1.30; Units: MG/DL; Status: F Test: GLOMERULAR FILTRATION RATE; Value: > 60.0; Range: >60; Status: F Test: SODIUM LEVEL; Value: 138; Range: 136-145; Units: MEQ/L; Status: F Test: POTASSIUM SERUM; Value: 3.6; Range: 3.5-5.1; Units: MEQ/L; Status: F Test: CHLORIDE LEVEL; Value: 100; Range: 98-107; Units: MEQ/L; Status: F Test: CARBON DIOXIDE LEVEL; Value: 30; Range: 21-32; Units: MEQ/L; Status: F Test: ANION GAP; Value: 8; Range: 8-16; Units: MEQ/L; Status: F Test: CALCIUM LEVEL; Value: 8.8; Range: 8.5-10.1; Units: MG/DL; Status: F Test Note: ; Units are mL/min/1.73 m2 Chronic Kidney Disease Staging per NKF: Stage I & II GFR >=60 Normal to Mildly Decreased Stage III GFR 30-59 Moderately Decreased Stage IV GFR 15-29 Severely Decreased Stage V GFR <15 Very Little GFR Left ESRD GFR <15 on RISK DEVELOPER Lab Order: Complete Blood Count; SPEC'M 05/29/16 12:09 Test: WHITE BLOOD COUNT; Value: 6.1; Range: 4.0-10.0; Units: K/mm3; Status: F Test: RED BLOOD COUNT; Value: 4.29; Range: 4.30-6.10; Abnormal: Below low normal; Units: M/mm3; Status: F Test: HEMOGLOBIN; Value: 12.8; Range: 14.0-18.0; Abnormal: Below low normal; Units: g/dl; Status: F Test: HEMATOCRIT; Value: 38.4; Range: 42.0-52.0; Abnormal: Below low normal; Units: %; Status: F Test: MEAN CORPUSCULAR VOLUME; Value: 89.4; Range: 80.0-96.0; Units: fl; Status: F Test: MEAN CORPUSCULAR HEMOGLOBIN; Value: 29.8; Range: 27.0-33.0; Units: pg; Status: F Test: MEAN CORPUSCULAR HGB CONC; Value: 33.3; Range: 32.0-36.5; Units: g/dl; Status: F Test: RED CELL DISTRIBUTION WIDTH; Value: 13.5; Range: 11.5-14.5; Units: %; Status: F Test: PLATELET COUNT, AUTOMATED; Value: 210; Range: 150-450; Units: k/mm3; Status: F Lab Order: Drug Eval Toxicology ED Only; SPEC'M 05/29/16 12:09 Test: AMPHETAMINES LEVEL URINE; Value: NEGATIVE; Range: NEGATIVE; Status: F Test: BARBITURATES URINE; Value: NEGATIVE; Range: NEGATIVE; Status: F Test: BENZODIAZEPINES URINE; Value: NEGATIVE; Range: NEGATIVE; Status: F Test: CANNABINOIDS URINE; Value: NEGATIVE; Range: NEGATIVE; Status: F Test: COCAINE METABOLITE URINE; Value: NEGATIVE; Range: NEGATIVE; Status: F Test: METHADONE URINE; Value: NEGATIVE; Range: NEGATIVE; Status: F Test: OPIATES URINE; Value: NEGATIVE; Range: NEGATIVE; Status: F Test: TRICYCLIC ANTIDEPRESS URINE; Value: NEGATIVE; Range: NEGATIVE; Status: F Test Note: ; ALL PRESUMPTIVE POSITIVE FINDINGS ARE UNCONFIRMED NORMAL VALUES THRESHOLD IN NG/ML AMPHETAMINES 1000 METHAMPHETAMINES 1000 BARBITURATES 300 BENZODIAZEPINES 300 CANNABINOIDS (THC) 50 COCAINE METABOLITE 300 METHADONE 300 OPIATES 300 PHENCYCLIDINE 25 TRICYCLIC ANTIDEPRESSANTS 1000 RESULTS ARE FOR MEDICAL PURPOSES ONLY. ALL URINE SPECIMENS WILL BE SAVED FOR 3 DAYS. IF CONFIRMATION OF A PRESUMPTIVE POSTIVE SCREEN RESULT IS DESIRED, CALL CHEMISTRY ([phone]) AND REQUEST URINE TO BE SENT TO REFERENCE LAB. FOR A LIST OF CLOSELY RELATED COMPOUNDS PLEASE CALL THE LAB. Lab Order: Ethyl Alcohol (ethanol); SPEC'M 05/29/16 12:09 Test: ETHYL ALCOHOL (ETHANOL); Value: < 0.003; Range: 0.000-0.010; Units: %; Status: F Lab Order: Liver Profile; SPEC'M 05/29/16 12:09 Test: AST/SGOT; Value: 31; Range: 15-37; Units: U/L; Status: F Test: ALT/SGPT; Value: 37; Range: 12-78; Units: U/L; Status: F Test: ALKALINE PHOSPHATASE; Value: 62; Range: 45-117; Units: U/L; Status: F Test: BILIRUBIN,TOTAL; Value: 0.7; Range: 0.2-1.0; Units: MG/DL; Status: F Test: BILIRUBIN,DIRECT; Value: 0.2; Range: 0.0-0.2; Units: MG/DL; Status: F Test: TOTAL PROTEIN; Value: 7.5; Range: 6.4-8.2; Units: GM/DL; Status: F Test: ALBUMIN; Value: 3.7; Range: 3.2-5.2; Units: GM/DL; Status: F Test: ALBUMIN/GLOBULIN RATIO; Value: 0.97; Range: 1.00-1.93; Abnormal: Below low normal; Status: F Lab Order: Salicylate Level; SPEC'M 05/29/16 12:09 Test: SALICYLATE LEVEL; Value: < 1.7; Range: 5.0-30.0; Abnormal: Below low normal; Units: MG/DL; Status: F Lab Order: Thyroid Stimulating Hormone; SPEC'M 05/29/16 12:09 Test: THYROID STIMULATING HORMONE; Value: 1.400; Range: 0.358-3.740; Units: uIU/ML; Status: F Lab Order: LITHIUM LEVEL; SPEC'M 05/29/16 12:09 Test: LITHIUM LEVEL; Value: 0.48; Range: 0.60-1.20; Abnormal: Below low normal; Units: MEQ/L; Status: F Outcome: 14:18 Decision to Hospitalize by Provider. sd1 16:33 Discharge Assessment: patient administered narcotics - no. The following High Risk ms2 Discharge criteria are identified: None. Admitted to Psych accompanied by tech, via wheelchair, with chart, Other 2 security accompanying pt. Condition: stable. No special radiology studies were completed. 16:37 Patient left the ED. ms2 Signatures: Dispatcher [employer] EDMS Rach Burrows MD MD sd1 Gustavo Moreland RN RN ms2 Marisabel Ferrara, PSA PSA ca [place], Reg Reg Beck Umaña, Security Aide Ryan Gilbert mm15 Han Shukla jp5 Corrections: (The following items were deleted from the chart) 15:10 15:06 Discharge Assessment: patient administered narcotics - no ms2 ms2 15:10 15:06 The following High Risk Discharge criteria are identified: None. Admitted to ms2 Psych accompanied by tech, via wheelchair, with chart, ms2 15:10 15:06 Condition: stable ms2 ms2 15:10 15:06 No special radiology studies were completed ms2 ms2 15:10 15:09 Patient left the ED. ms2 ms2 15:11 15:05 BP 133 / 71; Pulse 77bpm; Resp 20bpm; Spontaneous; Pulse Ox 98% RA; Temp 96.4F ms2 Oral; Pain 0/10; ms2 15:27 15:06 Subjective: The patients chief complaint is Pt threatened MH staff at [facility] today with knife, threatened to break a staff member's jaw. Pt stated he had knife because he didn't have his gun. Police called by staff. Pt making bizarre statements, says he has not eaten in 2 days because he is afraid to use the stove because the "drug dealers are coming in at night and turning on the burners." Pt is "angry at all the drug dealers.". Delusions are paranoid, persecutory, Patient's mood is anxious, elevated, irritable, Hallucinations are denied. Pt has long hx of hospitalizations, most recently at [facility] 03/19/16. Pt currently denying SI or HI, says he is "just angry with all the drug dealers." Denies he has missed any medications ca Chart Complete MTDD
--- NOTE | 2016-05-31 17:39 | EDDOCDS ---
Physician Documentation [facility] Name: Tristen Christian Age: 45 yrs Sex: Male : 1970 Arrival Date: 05/29/2016 Time: 12:[address] [facility] Private MD: Disposition: 05/29/16 14:18 Hospitalization ordered by Erick Hill for Inpatient Admission. Preliminary diagnosis is Major depressive disorder, single episode. - Bed requested for Admit. - Status is Inpatient Admission. ms2 - Condition is Stable. - Problem is an ongoing problem. - Symptoms are unchanged. Historical: - Allergies: states there is but not sure what-----[facility] in [place]; - Home Meds: 1. lithium carbonate 300 mg Oral cap 900 mg 2x a day (Last dose: 05/29/2016 09:00) 2. Seroquel 300 mg Oral tab nightly (Last dose: 05/28/2016 21:00) 3. Haldol 2 mg Oral tab 3 tab once daily (Last dose: 05/29/2016 09:00) 4. [facility] [place] ----PT HAS RECENT RX'S FOR INVEGA ER6MG DAILY 5. PER [employer] ---ATENOLOL 25MG --ONE BID 6. LAST FILLED LITHIUM IN DECEMBER 2015 7. LAST FILLED SEROQUEL IN 2015 8. NO RECENT INFORMATION ON ANY RX FOR HALDOL - PMHx: schizoaffective d/o, bipolar type; - PSHx: unknown; - Social history: Smoking status: Chewing Tobacco No barriers to communication noted, The patient speaks fluent Croatian. - Family history: Not pertinent. - : The pt / caregiver states he / she is not on anticoagulants. Home medication list is obtained from the patient, [employer] import data. - Exposure Risk Screening:: None identified. Vital Signs: 05/29 12:24 BP 147 / 92; Pulse 94; Resp 20 S; Pulse Ox 93% on R/A; Height 6 ft. 2 in. (187.96 cm); ms2 Pain 0/10; 12:24 pt does not give weight ms2 MDM: 12:14 REGULAR DIET PLASTIC ANDERSON+DIET ordered. EDMS 12:17 Consult PFS/PSA/Data Science And Iot Manager ordered. sd1 12:17 Consult PFS/PSA/Data Science And Iot Manager: Patient's case requires discussion with on-call sd1 Psychiatrist ordered. 12:17 PSA/PFS to call Nursing Limehouse Worker, to enter patient data on [place] Safe [place] if patient sd1 involuntarily admitted or transferred for SI or HI ordered. 12:17 Confirm accurate psychiatric medication list and times of last dosage ordered. sd1 12:17 Detain Pt Until Medically/PFS Cleared ordered. sd1 12:18 Acetaminophen Level Ordered. EDMS 12:18 Basic Metabolic Profile Ordered. EDMS 12:18 Complete Blood Count Ordered. EDMS 12:18 Drug Eval Toxicology ED Only Ordered. EDMS 12:18 Ethyl Alcohol (ethanol) Ordered. EDMS 12:18 Liver Profile Ordered. EDMS 12:18 Salicylate Level Ordered. EDMS 12:18 Thyroid Stimulating Hormone Ordered. EDMS 13:52 Consult PFS/PSA/Data Science And Iot Manager complete. ca 13:52 Acetaminophen Level Reviewed. sd1 13:52 Complete Blood Count Reviewed. sd1 13:52 Liver Profile Reviewed. sd1 13:52 Salicylate Level Reviewed. sd1 13:52 Basic Metabolic Profile Reviewed. sd1 13:52 Drug Eval Toxicology ED Only Reviewed. sd1 13:52 Ethyl Alcohol (ethanol) Reviewed. sd1 13:52 Thyroid Stimulating Hormone Reviewed. sd1 13:52 Consult PFS/PSA/Data Science And Iot Manager: Patient's case requires discussion with on-call ca Psychiatrist complete. 14:11 LORazepam 2 mg PO once ordered. sd1 14:14 PSA/PFS to call Nursing Limehouse Worker, to enter patient data [place] Safe [place] if patient ca involuntarily admitted or transferred for SI or HI complete. 14:38 [facility] Payment Agreement was scanned into [employer] and attached to record. jp5 14:38 Financial registration complete. jp5 14:41 LITHIUM LEVEL Ordered. EDMS 15:02 Admit to IMHU: ordered. EDMS 15:15 REGULAR DIET ordered. EDMS 15:35 Nicotine Patch 21 mg/24 hr 1 applic Transdermal once ordered. sd1 05/30 11:56 T-Sheet-- Draft Copy was scanned into whodoyou and attached to record. gb Administered Medications: 05/29 14:57 Not Given (Patient Refused): LORazepam 2 mg PO once sd1 15:54 Not Given (pt refuses once jwriter in room to givee): Nicotine Patch 21 mg/24 hr 1 ms2 applic Transdermal once Signatures: Dispatcher [employer] EDMS Rach Burrows MD MD sd1 Gustavo Moreland,DAISY RN ms2 Marisabel Ferrara, PSA PSA ca [place], Reg Reg Han Espinosa jp5 The chart was reviewed and I authenticate all verbal orders and agree with the evaluation and treatment provided.Corrections: (The following items were deleted from the chart) 14:41 14:35 LITHIUM LEVEL+LAB ordered. EDMS EDMS Attachments: 14:38 [facility] Payment Agreement jp5 05/30 11:56 T-Sheet-- Draft Copy gb Chart Complete MTDD
[2016-05-31 18:00] VITALS: BP 142/83
[2016-05-31] MEDS: QUEtiapine FUMARATE 100 MG TAB PO SCH (21:07)
[2016-06-01 06:15] VITALS: BP 134/69
[2016-06-01] MEDS: PALIPERIDONE 6 MG ER TAB (INVEGA) PO SCH (08:56)
[2016-06-01] MEDS: NICOTINE 21MG/24HR 1 EA TRANSDERMAL TD SCH ×2 (08:57→10:47)
[2016-06-01] MEDS: LITHIUM CARBONATE 300 MG CAP PO SCH ×2 (08:57→20:25)
[2016-06-01] MEDS: ATENOLOL 25 MG TAB PO SCH (08:57)
--- NOTE | 2016-06-01 12:14 | IPN ---
DATE: 06/01/2016 TREATMENT: Depression, continues to receive current medications, quetiapine 300 mg orally at bedtime, paliperidone 6 mg orally daily, lithium carbonate 900 mg twice daily, and atenolol 25 mg daily for hypertension. He is offered group, individual and activity therapies. Of note, he has not been participating actively in therapeutic programming. He has been accepting his medications and reporting no side effects. He so far has been preoccupied with being discharged , however has been reported to exhibit hostile, angry behaviors and his mood is still slightly labile. OBSERVATION: His vital signs are relatively stable. Grooming and hygiene are poor. Speech is of normal volume, rate and rhythm. Thought process is coherent. No evidence of delusions. He denies hallucinations and does not appear to be responding to internal stimuli. Mood as noted, is labile. He denies active suicidal thoughts, plan or intent. ASSESSMENT: He is tolerating current medications, but still continues to experience notable mood symptomatology and will require further inpatient stabilization. Current lithium level = 0.65 on 06/01/16. PLAN: Current treatment will be continued. MTDD
[2016-06-01 18:00] VITALS: BP 128/60
[2016-06-01] MEDS: QUEtiapine FUMARATE 100 MG TAB PO SCH (22:36)
[2016-06-02 06:14] VITALS: BP 157/87
[2016-06-02] MEDS: LITHIUM CARBONATE 300 MG CAP PO SCH ×2 (09:21→21:21)
[2016-06-02] MEDS: PALIPERIDONE 6 MG ER TAB (INVEGA) PO SCH (09:21)
[2016-06-02] MEDS: NICOTINE 21MG/24HR 1 EA TRANSDERMAL TD SCH (09:22)
[2016-06-02] MEDS: ATENOLOL 25 MG TAB PO SCH (09:22)
[2016-06-02 18:00] VITALS: BP 138/66
[2016-06-02] MEDS: QUEtiapine FUMARATE 100 MG TAB PO SCH (21:21)
[2016-06-03 06:27] VITALS: BP 131/61
[2016-06-03] MEDS: ATENOLOL 25 MG TAB PO SCH (08:43)
[2016-06-03] MEDS: PALIPERIDONE 6 MG ER TAB (INVEGA) PO SCH (08:43)
[2016-06-03] MEDS: LITHIUM CARBONATE 300 MG CAP PO SCH ×2 (08:43→21:17)
[2016-06-03] MEDS: NICOTINE 21MG/24HR 1 EA TRANSDERMAL TD SCH (08:44)
--- NOTE | 2016-06-03 09:40 | IPN ---
DATE: 06/02/2016 The patient today states "I'm doing fine." He is really minimizing the events prior to his admission. He continues to see no reason why he is in the hospital. However, the staff still reports that the patient exhibits a lot irritability and a labile affect. He has been taking his medication. MENTAL STATUS EXAMINATION: He is alert and oriented times three. Eye contact is fairly good. Psychomotor activity is normal. There is no formal thought disorder noted. He says his mood is "good." His affect is somewhat labile and mood is fairly irritable. Memory intact. Insight and judgment is poor. DIAGNOSIS: Schizoaffective disorder, bipolar type. TREATMENT PLAN: We will continue to monitor the patient for further elevation and stabilization of his mood. We will continue to titrate his medications as indicated.
[2016-06-03 18:00] VITALS: BP 120/66
[2016-06-03] MEDS: QUEtiapine FUMARATE 100 MG TAB PO SCH (21:17)
[2016-06-04 06:00] VITALS: BP 165/65
[2016-06-04] MEDS: LITHIUM CARBONATE 300 MG CAP PO SCH ×2 (08:55→20:41)
[2016-06-04] MEDS: PALIPERIDONE 6 MG ER TAB (INVEGA) PO SCH (08:55)
[2016-06-04] MEDS: ATENOLOL 25 MG TAB PO SCH (08:55)
[2016-06-04] MEDS: NICOTINE 21MG/24HR 1 EA TRANSDERMAL TD SCH (08:55)
--- NOTE | 2016-06-04 16:51 | IPN ---
DATE: 06/04/2016 MEDICATIONS: - Seroquel 300 mg by mouth nightly - Invega 6 mg by mouth every morning - [place] 900 mg by mouth twice a day OBJECTIVE: "I want to get out of here." SUBJECTIVE: Patient continues manic with very low insight and poor judgment. Earlier he was agitated, yelling and screaming in the sidewalks. Patient was requesting to be discharged immediately. He calmed down but continued asking me for discharge as he does not believe he has any problem. Patient was admitted after he took a knife to his mental health appointment. He said he brought the knife because he did not have his gun. He reportedly threatened to break a staff member's jaw. He was very psychotic during the evaluation. He said that he had not eaten for 2 days because he was afraid to use the stove. He was talking about drug dealers coming at night and turning on the burners. He was really paranoid. He has been diagnosed with schizoaffective disorder. MENTAL STATUS EXAMINATION: Patient is dressed in [facility]. Patient is labile, agitated, and psychotic. Speech is pressured. Mood is anxious and manic. Affect is labile, congruent with mood. Patient continues to be paranoid. No hallucinations. Memory is poor. Insight and judgment are also poor. ASSESSMENT: 1. Schizoaffective disorder, bipolar type. PLAN: 1. Continue with Seroquel 300 mg by mouth nightly. 2. Continue with Invega 60 mg by mouth daily. 3. Continue with lithium 900 mg by mouth twice a day. 4. Continue with close monitoring. 5. His lithium level was 0.65 on 06/01/2016. Will followup.
[2016-06-04 18:00] VITALS: BP 151/85
[2016-06-04] MEDS: QUEtiapine FUMARATE 100 MG TAB PO SCH (20:41)
[2016-06-05 06:40] VITALS: BP 103/55
[2016-06-05] MEDS: NICOTINE 21MG/24HR 1 EA TRANSDERMAL TD SCH (08:56)
[2016-06-05] MEDS: PALIPERIDONE 6 MG ER TAB (INVEGA) PO SCH (08:57)
[2016-06-05] MEDS: LITHIUM CARBONATE 300 MG CAP PO SCH ×2 (08:57→21:17)
[2016-06-05] MEDS: ATENOLOL 25 MG TAB PO SCH (08:58)
[2016-06-05 18:00] VITALS: BP 150/85
--- NOTE | 2016-06-05 19:49 | IPN ---
DATE: 06/05/2016 HISTORY: A 45-year-old male with a history of schizoaffective disorder admitted to our unit in a manic episode. The patient took a knife to his mental health appointment and stated that he had the knife because he did not have a gun. He has threatened to break a staff member's jaw. He was illogical, stating that he has not eaten in two days because he was afraid to use the stove and was talking about drug dealers coming in the night and turning on the burners. MEDICATIONS: - Seroquel 300 mg by mouth at bedtime - Invega 6 mg by mouth daily - lithium 900 mg twice a day SUBJECTIVE: "I want to get out of here." "I don't want to change any of the medication." OBJECTIVE: The patient continues manic, irritable, impulsive, at times threatening. The patient has very little insight and does not want to change any of the medication. "This medication is working fine. I'm not gonna change it." The patient is probably noncompliant on an outpatient basis. MENTAL STATUS EXAMINATION: The patient is dressed in [facility]. Speech is pressured. Mood is elated. Affect is irritable, angry. The patient continues to delusional. Memory, attention and concentration are impaired. Insight and judgment are poor. ASSESSMENT: Schizoaffective disorder, bipolar type. PLAN: 1. Continue with: - Seroquel 300 mg by mouth at bedtime - Invega 6 mg by mouth at bedtime - lithium 900 mg by mouth twice a day 2. Continue medication management, individual and group therapy as tolerated by patient. 3. His lithium level was on 06/01/2016, and was 0.65 with the current dose.
[2016-06-05] MEDS: QUEtiapine FUMARATE 100 MG TAB PO SCH (21:16)
[2016-06-06 06:36] VITALS: BP 155/96
[2016-06-06] MEDS: NICOTINE 21MG/24HR 1 EA TRANSDERMAL TD SCH (08:19)
[2016-06-06] MEDS: LITHIUM CARBONATE 300 MG CAP PO SCH ×2 (08:19→20:59)
[2016-06-06] MEDS: PALIPERIDONE 6 MG ER TAB (INVEGA) PO SCH (08:19)
[2016-06-06] MEDS: ATENOLOL 25 MG TAB PO SCH (08:19)
--- NOTE | 2016-06-06 17:06 | IPN ---
DATE: 06/06/2016 45-year-old with long history of schizoaffective disorder, admitted to our unit with a manic episode. Patient was carrying a knife to his outpatient appointment. He was paranoid. He stated that he has not eaten in 2 days because he was afraid to use the stove. He was talking about drug dealers coming into his house. MEDICATIONS: - Seroquel 300 mg by mouth nightly - Invega 6 mg by mouth daily - [place] 900 mg by mouth twice a day SUBJECTIVE: "I want to be discharged, I want to go home." OBJECTIVE: Patient continues with very little insight and is intermittently irritable. His behavior has improved over the past several days. No agitation or behavioral disturbance, although he can be irritable and impulsive sometimes. MENTAL STATUS EXAMINATION: Patient is dressed in [facility]. Speech is pressured. Mood continues to be elated. Affect is irritable and angry intermittently. Patient continues to be delusional. Memory, attention, and concentration are impaired. Insight and judgment continue to be poor. ASSESSMENT: 1. Schizoaffective disorder, bipolar type. PLAN: 1. Continue with Seroquel 300 mg by mouth nightly. 2. Continue with Invega 6 mg by mouth nightly. 3. Continue with [place] 900 mg by mouth twice a day.
[2016-06-06 18:00] VITALS: BP 154/76
[2016-06-06] MEDS: QUEtiapine FUMARATE 100 MG TAB PO SCH (21:00)
[2016-06-07 06:38] VITALS: BP 147/93
[2016-06-07] MEDS: NICOTINE 21MG/24HR 1 EA TRANSDERMAL TD SCH (09:31)
[2016-06-07] MEDS: PALIPERIDONE 6 MG ER TAB (INVEGA) PO SCH (09:31)
[2016-06-07] MEDS: ATENOLOL 25 MG TAB PO SCH (09:31)
[2016-06-07] MEDS: LITHIUM CARBONATE 300 MG CAP PO SCH ×2 (09:31→20:54)
--- NOTE | 2016-06-07 16:49 | IPN ---
DATE: 06/07/2016 45-year-old male with long history of Schizoaffective disorder admitted to our unit with a manic episode. Patient was carrying a knife to his outpatient appointment. He was paranoid. He stated he has not eaten in two days because he was afraid to use the stove. He was talking about drug dealers coming into his house. MEDICATION: - Seroquel 300 mg by mouth at bedtime - Invega 6 mg by mouth daily - lithium 900 mg by mouth twice a day SUBJECTIVE: "I need to go home." OBJECTIVE: Patient's behavior has improved, not as agitated and angry. No behavioral disturbance in the last 48 hours. He continues to be delusional and very little insight into his mental problem, and apparently he has destroyed his apartment and is going to be facing problems with his landlord. MENTAL STATUS EXAMINATION: Patient dressed in [facility]. Speech continues to be pressured. Mood continues elated. Affect is irritable and angry but improving. Continues paranoid and delusional. Memory, attention and concentration is improving somewhat. Insight and judgment is poor. ASSESSMENT: Schizoaffective disorder bipolar type. PLAN: 1. Seroquel 300 mg by mouth at bedtime. 2. Invega 6 mg by mouth at bedtime. 3. [place] 900 mg by mouth twice a day.
[2016-06-07 18:00] VITALS: BP 161/83
[2016-06-07] MEDS: QUEtiapine FUMARATE 100 MG TAB PO SCH (20:54)
[2016-06-08 06:51] VITALS: BP 137/64
[2016-06-08] MEDS: LITHIUM CARBONATE 300 MG CAP PO SCH ×2 (09:47→20:16)
[2016-06-08] MEDS: NICOTINE 21MG/24HR 1 EA TRANSDERMAL TD SCH (09:48)
[2016-06-08] MEDS: ATENOLOL 25 MG TAB PO SCH (09:48)
[2016-06-08] MEDS: PALIPERIDONE 6 MG ER TAB (INVEGA) PO SCH (09:48)
[2016-06-08 18:21] VITALS: BP 123/67
--- NOTE | 2016-06-08 18:33 | IPN ---
DATE: 06/08/2016 A 45-year-old male with a long history of schizoaffective disorder, admitted to our unit with a manic episode. The patient was carrying a knife to his outpatient appointment. He was paranoid. He stated he has not eaten in two days because he was afraid to use the stove. He was talking about drug dealers coming into his house. MEDICATION: - Seroquel 300 mg by mouth at bedtime - Invega 6 mg by mouth daily - lithium 900 mg by mouth twice a day SUBJECTIVE: "I need to go home." OBJECTIVE: Patient's behavior is improving, although patient continues to have very low insight into psychiatric illness. Patient continues to be focused on discharge. No agitation or behavioral problems during the last 72 hours. He is compliant with medication and denies side effect. MENTAL STATUS EXAMINATION: Patient is dressed in [facility]. His speech is no longer pressured. Mood continues somewhat elated but significantly improved. Affect is flat but no longer angry or irritable, although he gets this way when thinks about discharge issues. Continues to have paranoid delusions but is not acting on them. Attention and concentration are also improving. Insight and judgment are poor. ASSESSMENT: Schizoaffective disorder, bipolar type. PLAN: 1. Continue with Seroquel 300 mg by mouth at bedtime 2. Invega 6 mg by mouth at bedtime. 3. [place] 900 mg by mouth twice a day.
[2016-06-08] MEDS: QUEtiapine FUMARATE 100 MG TAB PO SCH (20:16)
[2016-06-09 06:30] VITALS: BP 104/58
[2016-06-09 07:25] LABS: ALBUMIN 3.1 GM/DL (3.2-5.2); ALKALINE PHOSPHATASE 59 U/L (45-117); ALT/SGPT 25 U/L (12-78); ANION GAP 4 MEQ/L (8-16); AST/SGOT 15 U/L (15-37); BILIRUBIN,TOTAL 0.2 MG/DL (0.2-1.0); BLOOD UREA NITROGEN 12 MG/DL (7-18); CALCIUM LEVEL 8.8 MG/DL (8.5-10.1); CARBON DIOXIDE LEVEL 33 MEQ/L (21-32); CHLORIDE LEVEL 106 MEQ/L (98-107); CREATININE FOR GFR 0.87 MG/DL (0.70-1.30); GLOMERULAR FILTRATION RATE > 60.0 (>60); GLUCOSE, FASTING 111 MG/DL (70-105); POTASSIUM SERUM 4.6 MEQ/L (3.5-5.1); SODIUM LEVEL 143 MEQ/L (136-145); TOTAL PROTEIN 6.2 GM/DL (6.4-8.2)
[2016-06-09 07:27] LABS: LITHIUM LEVEL 0.65 MEQ/L (0.60-1.20)
[2016-06-09] MEDS: PALIPERIDONE 6 MG ER TAB (INVEGA) PO SCH (09:15)
[2016-06-09] MEDS: LITHIUM CARBONATE 300 MG CAP PO SCH ×2 (09:15→22:06)
[2016-06-09] MEDS: ATENOLOL 25 MG TAB PO SCH (09:15)
[2016-06-09] MEDS: NICOTINE 21MG/24HR 1 EA TRANSDERMAL TD SCH (09:15)
[2016-06-09 18:00] VITALS: BP 151/91
[2016-06-09] MEDS: QUEtiapine FUMARATE 100 MG TAB PO SCH (22:06)
[2016-06-10 06:00] VITALS: BP 143/95
[2016-06-10] MEDS: PALIPERIDONE 6 MG ER TAB (INVEGA) PO SCH (09:52)
[2016-06-10] MEDS: LITHIUM CARBONATE 300 MG CAP PO SCH ×2 (09:52→20:00)
[2016-06-10] MEDS: ATENOLOL 25 MG TAB PO SCH (09:56)
[2016-06-10] MEDS: NICOTINE 21MG/24HR 1 EA TRANSDERMAL TD SCH (09:57)
[2016-06-10] MEDS ORDERED: LITH300C PO (16:45)
[2016-06-10] MEDS ORDERED: QUET1TAB8 PO (16:45)
[2016-06-10] MEDS ORDERED: PALI1TAB3 PO (16:45)
[2016-06-10 18:00] VITALS: BP 142/69
[2016-06-10] MEDS: QUEtiapine FUMARATE 100 MG TAB PO SCH (20:00)
[2016-06-11 06:33] VITALS: BP 143/58
[2016-06-11] MEDS ORDERED: NICO21PAT TD (08:13)
[2016-06-11] MEDS: PALIPERIDONE 6 MG ER TAB (INVEGA) PO SCH (08:32)
[2016-06-11] MEDS: LITHIUM CARBONATE 300 MG CAP PO SCH (08:32)
[2016-06-11 08:33] VITALS: BP 143/58
[2016-06-11] MEDS: ATENOLOL 25 MG TAB PO SCH (08:33)
[2016-06-11] MEDS: NICOTINE 21MG/24HR 1 EA TRANSDERMAL TD SCH (08:34)
--- NOTE | 2016-06-11 13:04 | MHDS ---
DATE OF ADMISSION: 05/29/2016 DATE OF DISCHARGE: 06/11/2016 LEGAL STATUS AT ADMISSION: 9.39 legal status. HISTORY OF PRESENT ILLNESS: The following information is according to the initial evaluation of Dr. Elizabeth, his progress note and my progress notes. On 05/30/2016, Dr. Elizabeth wrote, the patient is a 45-year-old, morbidly obese -[place] man with an extensive history of inpatient and outpatient psychiatric treatment referred for evaluation because he reportedly took a knife to his mental health appointment. According to the statement attributed to the patient he had a knife because he did not have his gun. He reportedly threatened to break a staff member's jaw. The police were therefore called by staff and he was brought to the emergency department. He told staff rather illogically that he had not eaten for two days because he was afraid to use the stove because the drug dealers were coming in at night and turning on the burners. He was noted to express paranoid delusions and his mood was described as anxious, elevated and irritable. Upon being interviewed on the unit, the patient stated that "I am fine, my medications are now working, I was just joking about the knife, I was not going to hurt anybody". Of note, he was recently hospitalized for a manic episode. The patient has had more than ten previous inpatient psychiatric hospitalizations. He has predominantly been diagnosed with bipolar or schizoaffective disorder. LABS AT ADMISSION: His CBC showed red blood cells of 4.29, hemoglobin 12.8, hematocrit 38.4. His CMP was within normal limits. His lithium was 0.48. His urine drug screen (UDS) was negative and blood alcohol level was negative. On 06/09/2016, his CMP was unremarkable and his lithium level is 0.65. HOSPITAL COURSE: The patient was admitted on a 9.39 legal status. He was placed back on his psychiatric medication. The patient was stating that he did not want his medications changed since the ones he is taking are working and therefore she was started on Seroquel 300 mg by mouth at bedtime, Invega 6 mg by mouth daily and lithium 900 mg by mouth twice a day. With this medication, the patient was stabilized. His manic symptoms and paranoid delusions decreased throughout the hospitalization. At the moment of discharge, the patient is not acting on his delusions and his manic episode has subsided. However, he continues having low insight into his illness. His cyber policy and strategy planner got in touch with [facility] and the plan is to get an apartment through [facility], but he did not want to wait until this apartment is ready, so DSS was contacted and he will be living there in the meantime. I recommended the patient to wait a little longer, but he refused to stay in the unit. At this point, the patient does not meet criteria for involuntary hospitalization. The patient denies any suicidal or homicidal ideation. The patient does not have auditory or visual hallucinations or paranoid delusions. Again, the patient remains with low insight into his illness and is not accepting the recommendations to stay in the hospital a few more days. At the moment of discharge, the patient is in stable condition. As stated above, the patient denies any side effect from the medication and is willing to continue his treatment as an outpatient and continue taking his medications. MEDICATIONS AT DISCHARGE: - Seroquel 300 mg by mouth at bedtime - Invega 6 mg by mouth daily - lithium 900 mg by mouth twice a day, which he gets a level of 0.65. MENTAL STATUS EXAMINATION AT DISCHARGE: Patient is dressed in [facility]. Patient is cooperative. Speech is clear, coherent with normal rate and spontaneous. Patient has good eye contact. Mood is euthymic, affect is appropriate and congruent with mood. Patient is oriented to time, place, person and situation. Maintains attention and concentration correctly. Instant recall, recent and remote memory are intact. Thought processes are coherent, logical and goal directed. Patient does not have auditory or visual hallucinations. Patient does not have paranoid, persecutory, somatic, or mu-ism delusions. Patient denies suicidal or homicidal ideation. Judgment and insight are limited. DISCHARGE DIAGNOSES: [place] I: Schizoaffective disorder, bipolar type. [place] II: Deferred. [place] III: Hypertension. INSTRUCTIONS TO THE PATIENT: The patient is to continue taking his medications as prescribed and followup appointments. He is advised to maintain absolute sobriety from drugs and alcohol. The patient has scheduled appointment for psychotropic medication management and individual therapy and also for primary care physician.
== END 2016-06-11 10:40 | disposition home or self-care (01) | DRG 885 ==
LOC: M ED 12:09 → M PSY 16:35
PROVIDERS: ADMIT Psychiatry & Neurology Psychiatry; ATTEND Psychiatry & Neurology Psychiatry
DX: F25.0 Schizoaffective disorder, bipolar type (principal); Z68.43 Body mass index [BMI] 50.0-59.9, adult; Z79.899 Other long term (current) drug therapy; I10 Essential (primary) hypertension; Z88.8 Allergy status to other drugs, medicaments and biological substances; E66.01 Morbid (severe) obesity due to excess calories; F17.220 Nicotine dependence, chewing tobacco, uncomplicated

== ENCOUNTER → 2016-08-30 | Outpatient (REF) ==
[~2016-08-30] MED LIST changes: +INVE6TAB2 PO; +LITH300T2 PO; +NICO21PAT TD; +PALI1TAB3 PO; +SERO1TAB2 PO
== END ==
LOC: M LAB 08:48
DX: Z02.89 Encounter for other administrative examinations (principal)